=== PATIENT | male | born 1955 | race Asian ===

== ENCOUNTER 2020-05-08 13:29 | Outpatient (REF) | payer BC, SELFPAY ==
[2020-05-08 15:15] LABS: PSA,Total (Free>4and<10) 1.14 ng/mL (0.00-4.00)
== END 2020-05-08 13:30 | disposition home or self-care (01) ==
LOC: HO.LAB 13:29
PROVIDERS: PCP Internal Medicine; Visit Provider Urology
DX: R97.20 Elevated prostate specific antigen [PSA] (principal); Z12.5 Encounter for screening for malignant neoplasm of prostate
CPT/HCPCS: 36415; 84153

== ENCOUNTER → 2020-07-01 14:34 | Outpatient (BNVA) | payer BC, SELFPAY | PROVIDERS: Visit Provider Urology ==

== ENCOUNTER → 2021-01-01 14:06 | Outpatient (BNVA) | payer BC, SELFPAY | PROVIDERS: Visit Provider Urology ==

== ENCOUNTER → 2021-02-25 14:53 | Outpatient (BNVA) | payer BC, SELFPAY | PROVIDERS: Visit Provider Urology ==

== ENCOUNTER → 2021-03-11 13:51 | Outpatient (BNVA) | payer BC, SELFPAY | PROVIDERS: PCP Internal Medicine; Visit Provider Internal Medicine Cardiovascular Disease ==

== ENCOUNTER → 2021-03-12 09:33 | Outpatient (REF) | payer MEDICARE, SELFPAY ==
--- NOTE | ~2021-03-12 | NM_ITS ---
EXERCISE MYOCARDIAL PERFUSION STUDY INDICATION: Chest pain, assess for coronary disease and ischemia TECHNIQUE: The patient was brought in for an exercise perfusion study on 03/12/2021. Patient performed exercise as per Ra protocol and was injected 32 mCi of sestamibi once target heart rate was achieved. Images were obtained using the SPECT gamma camera interlaced with the gating device. Images were obtained in supine position. Resting perfusion study was performed on 03/13/2021. Patient was administered 32 mCi of sestamibi intravenously at rest. Images were then obtained in supine position. Total DLP 118mGy-cm. Images were processed with the software and compared side to side in short axis, horizontal long axis and vertical long axis views. FINDINGS: Raw images were reviewed. The stress perfusion study showed no significant perfusion abnormality. Both uncorrected as well as CT attenuation corrected images were reviewed. The gated study shows normal LV systolic function with calculated LVEF of >70%. LV cavity is normal in size. The gated study shows normal wall thickening and contraction of segments. Resting study shows no significant perfusion abnormality. Gating at rest reveals normal wall motion with ejection fraction at >70%. The findings are consistent with no reversible or fixed perfusion abnormality. NM/NM cardiolite stress test IMPRESSION: 1. Myocardial perfusion imaging study shows normal myocardial perfusion. 2. Gated LVEF is >70% during stress and rest. 3. Transient ischemic dilatation not present. EKG component of the test reported separately.
--- NOTE | 2021-03-12 09:49 | CA_ITS ---
Acquisition Time: 2021-03-12 10:47:21 Total Exercise Time: 00:05:00 Test Indications: R/O ANGINA, SOB Medications: SEE CHART Protocol: BARTOLO Max HR: 139 BPM 90% of Pred: 153 BPM Max BP: 166/080 mmHG Max Work Load: 6.7 METS Exercise stress test with exercise 5 min of Bartolo protocol, with moderate shortness of breath, no chest discomfort, without arrythmia during exercise, with sinus arrythmia noted at baseline and in recovery, with normotensive response to exercise, without EKG changes meeting criteria for ischemia. Nuclear images pending. Test reviewed with Dr Walker. Referred By: Miguel Angel Tobar Overread By: JIGAR DEL RIO
--- NOTE | 2021-03-12 09:49 | CA_ITS ---
Transthoracic Echocardiogram Patient (Last, First, Middle): Sushant Cerna, Gender: Male Date of : 1955 Age: 65 Procedure Date: 03/12/2021 Procedure Type: Transthoracic Echocardiogram Location: OP Height: 165.1 cm Weight: 90.27 kg BSA: 1.97 m2 Heart Rate: bpm BP: 126 / 74 mmHg Gas Meter Reader: ROSANNE Referring MD: Miguel Angel Tobar MD Symptoms: R06.02 - Shortness of breath Study Quality: Fair ECG Rhythm: Sinus Conclusions: - The left ventricular systolic function is normal. The calculated ejection fraction is 67% by biplane method. - There is mild calcification of the aortic valve. Findings Procedure Information Contrast agent, definity, is being given per protocol without apparent complications. Left Ventricle Normal left ventricular cavity size. There is normal left ventricular wall thickness. The left ventricular systolic function is normal. The calculated ejection fraction is 67% by biplane method. There is no evidence of regional wall motion abnormalities. Diastolic function is indeterminate on the basis of available data. Right Ventricle Normal right ventricular cavity size and systolic function. Atria Both atria are normal in size. Aortic Valve There is a normal trileaflet aortic valve. There is mild calcification of the aortic valve. There is no aortic valve stenosis. There is no aortic valve regurgitation. Mitral Valve The mitral valve appears normal. There is trace mitral valve regurgitation. There is no mitral valve stenosis. Pulmonic Valve The pulmonic valve was not well visualized. Tricuspid Valve There is trace tricuspid valve regurgitation. The pulmonary artery systolic pressure is normal. Great Vessels The aortic annulus and asc aorta are normal in size. Venous The inferior vena cava is normal in size and collapses less than 50% with inspiration. Pericardium/Pleural There is no evidence of pericardial effusion. Prior Study Comparison No prior study available for comparison. Measurements 2D Linear Measurements IVSd: 0.85 0.6-0.9/0.6-1.0 cm LVIDd: 4.90 3.9-5.3/4.2-5.9 cm LVIDd Index: 2.49 2.4-3.2/2.2-3.1 cm/m2 LVIDs: 3.03 2.0-3.6 cm LVPWd: 0.91 0.7-1.1 cm Ao Root: 3.40 2.1-3.5 cm LA Diam: 3.10 2.7-3.8/3.0-4.0 cm LAIDs Index: 1.57 1.5-2.3 cm/m2 LV Mass: 183.90 67-162/88-224 g LV Mass Index: 93.35 43-95/49-115 g/m2 LVOT Diam: 2.10 3.0+(-)1.3 cm 2D Systolic Function EF 4C: 69.10 >55% EF 2C: 62.00 >55% EF BiP: 66.60 >55% Mitral Valve MV Pk E: 0.75 MV PK A: 0.50 MV Decel Time: 198.00 E/A: 1.50 PHT: 58.00 MVA PHT: 3.79 Decel Monroe: 3.76 Aortic Valve AoV Pk Bahman: 1.60 AoV Pk Grad: 10.00 LVOT LVOT Pk Bahman: 0.97 LVOT Mn Bahman: 0.64 LVOT VTI: 0.23 LVOT Pk Grad: 4.00 LVOT Mn Grad: 2.00 LVOT Diam: 2.10 LVOT Area: 3.46 Diastolic Function MV Pk E: 0.75 MV Pk A: 0.50 E/A: 1.50 Right Ventricle TAPSE (mm): 2.87 Tricuspid Valve TR Pk Bahman: 2.17 TR Pk Grad: 19.00 RA Press: 8.00 RVSP: 27.00 Great Vessels Aorta Ao Root-2D: 3.40 2.0-3.7 cm Ao Asc: 3.40 2.1-3.4 cm Updated in Other Vendor System with Status of Final Harman Walker MD electronically signed on 03/13/2021 12:07:25 PM with status of Final
== END ==
LOC: HO.CARD 09:33
PROVIDERS: PCP Internal Medicine; Visit Provider Internal Medicine Cardiovascular Disease
DX: R07.9 Chest pain, unspecified (principal); R06.02 Shortness of breath
CPT/HCPCS: 78452; 93017; 93306; A9500; Q9957

== ENCOUNTER → 2021-04-29 11:01 | Outpatient (BNVA) | payer MEDICARE, SELFPAY | PROVIDERS: PCP Internal Medicine; Visit Provider Internal Medicine Cardiovascular Disease | DX: R06.02 Shortness of breath (principal); I10 Essential (primary) hypertension | CPT/HCPCS: 99212 ==

== ENCOUNTER 2021-05-14 15:37 | Outpatient (REF) | payer MEDICARE, SELFPAY ==
--- NOTE | 2021-05-14 17:29 | PFT_ITS ---
INDICATION: Shortness of breath. SPIROMETRY: FEV1 to FVC 90% with an FEV1 of 2.08 L, which is 76% predicted and an FVC of 2.31 L, which is 62% predicted. No significant response to bronchodilators noted. Maximum voluntary ventilation, 85% predicted. LUNG VOLUMES: Total lung capacity 63% predicted with an expiratory reserve volume of 7% predicted. DIFFUSION CAPACITY: DLCO 76% predicted. COMPARISONS: None. INTERPRETATION: No obstructive ventilatory defects. No significant response to bronchodilators noted. Normal maximum voluntary ventilation. The patient does have a restrictive ventilatory defect consistent with moderate restrictive lung disease. Need to consider underlying interstitial lung conditions. The patient also has a decrease in the expiratory reserve volume, so therefore likely the elevated BMI is playing a role in the decrease in total lung capacity. The patient does have a mild diffusion impairment. Clinical correlation warranted. MD AUGUSTUS Gaines/PATRICK / [phone]
== END 2021-05-14 15:38 | disposition home or self-care (01) ==
LOC: HO.RESP 15:37
PROVIDERS: PCP Internal Medicine; Visit Provider Internal Medicine Cardiovascular Disease
DX: R06.02 Shortness of breath (principal)
CPT/HCPCS: 94060; 94727; 94729

== ENCOUNTER → 2021-05-19 21:19 | Outpatient (REF) | payer MEDICARE, SELFPAY | LOC: HO.SL 21:19 | PROVIDERS: PCP Internal Medicine; Visit Provider Internal Medicine | DX: G47.33 Obstructive sleep apnea (adult) (pediatric) (principal) | CPT/HCPCS: 95811 ==

== ENCOUNTER → 2021-06-22 15:05 | Outpatient (BNVA) | payer MEDICARE, SELFPAY | PROVIDERS: PCP Internal Medicine; Visit Provider Internal Medicine | DX: G47.33 Obstructive sleep apnea (adult) (pediatric) (principal); J98.4 Other disorders of lung; E66.9 Obesity, unspecified; R06.02 Shortness of breath; Z68.36 Body mass index [BMI] 36.0-36.9, adult | CPT/HCPCS: 99202 ==

== ENCOUNTER → 2021-08-04 14:52 | Outpatient (BNVA) | payer MEDICARE, SELFPAY | PROVIDERS: PCP Internal Medicine; Visit Provider Internal Medicine | DX: J98.4 Other disorders of lung (principal); G47.33 Obstructive sleep apnea (adult) (pediatric); E66.9 Obesity, unspecified; Z68.35 Body mass index [BMI] 35.0-35.9, adult | CPT/HCPCS: 99212 ==

== ENCOUNTER → 2021-10-14 12:41 | Outpatient (BNVA) | payer MEDICARE, SELFPAY | PROVIDERS: Visit Provider Urology | DX: N40.1 Benign prostatic hyperplasia with lower urinary tract symptoms (principal); N13.8 Other obstructive and reflux uropathy; R39.12 Poor urinary stream | CPT/HCPCS: 99212 ==

== ENCOUNTER → 2021-11-25 14:35 | Outpatient (BNVA) | payer MEDICARE, SELFPAY | PROVIDERS: Visit Provider Internal Medicine | DX: G47.33 Obstructive sleep apnea (adult) (pediatric) (principal); J98.4 Other disorders of lung; E66.9 Obesity, unspecified; Z68.35 Body mass index [BMI] 35.0-35.9, adult; Z99.89 Dependence on other enabling machines and devices | CPT/HCPCS: 99212 ==

== ENCOUNTER → 2022-02-16 14:55 | Outpatient (BNVA) | payer MEDICARE, SELFPAY | PROVIDERS: PCP Internal Medicine; Visit Provider Internal Medicine | DX: G47.33 Obstructive sleep apnea (adult) (pediatric) (principal); E66.9 Obesity, unspecified; J98.4 Other disorders of lung; Z68.36 Body mass index [BMI] 36.0-36.9, adult | CPT/HCPCS: 99212 ==

== ENCOUNTER → 2022-03-11 08:24 | Outpatient (BNVA) | payer MEDICARE, SELFPAY | PROVIDERS: PCP Internal Medicine; Visit Provider Orthopaedic Surgery | DX: M65.342 Trigger finger, left ring finger (principal) | CPT/HCPCS: 99202; J1100 ==

== ENCOUNTER → 2022-06-21 14:51 | Outpatient (BNVA) | payer MEDICARE, SELFPAY | PROVIDERS: PCP Internal Medicine; Visit Provider Internal Medicine | DX: G47.33 Obstructive sleep apnea (adult) (pediatric) (principal); J98.4 Other disorders of lung; E66.9 Obesity, unspecified; Z68.35 Body mass index [BMI] 35.0-35.9, adult | CPT/HCPCS: 99212 ==

== ENCOUNTER 2022-12-27 14:46 | Outpatient (AMB) | payer MEDICARE, SELFPAY ==
[2022-12-27 15:04] VITALS: BP 104/54; PULSE 57; O2SAT 99; BMI 34.6
--- NOTE | 2022-12-27 15:04 | MHC.OFFVIS ---
Intake Vital Signs 12/27/22 15:04 Height 5 ft 5 in Weight 208 lb BMI 34.6 BP 104/54 L Blood Pressure Location Lt brachial Position Sitting Pulse 57 Pulse Source Pulse Oximeter Pulse Oximetry (%) 99 Oxygen Delivery Method Room Air Intake Visit Reasons: sleep apnea Intake Note: pt is here for follow up of TEJAS and states he is having some issues with cpap due to his nose gets very itchy, and not breathing good with it, he tried, but is struggling. 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 HE CLAIMS THAT HE SLEEPS WELL AND DOES NOT HAVE DAYTIME SLEEPINESS. HE CAN EVEN DRIVE HIS CAR FROM HERE TO [facility] WITHOUT FALLING ASLEEP.. HIS SAY IS THAT HE LOVES TO EAT SWEETS. HE HAS NOT LOST MUCH WEIGHT. [facility] Medical History Restrictive lung disease TEJAS (obstructive sleep apnea) Obesity (BMI 30-39.9) Hyperlipidemia HTN (hypertension) Obesity Hypothyroid High cholesterol Other obstructive and reflux uropathy Benign prostatic hyperplasia with lower urinary tract symptoms Elevated PSA Family History Father No problems noted. 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 Review of Systems Const All systems reviewed & are unremarkable except as noted in HPI and below Reports snoring Eyes Reports no additional complaints ENT Reports no additional complaints Card Denies chest pain, Denies irregular heart rhythm and Denies leg edema Resp Reports as per HPI, Denies cough, Reports snoring and Denies wheezing GI Reports no additional complaints Reports urinary hesitancy Musc Reports no additional complaints Skin/Breast Reports system reviewed and no additional complaints, except as documented Neuro Reports no additional complaints Psych Reports no additional complaints Endo Reports no additional complaints Andrey/Lymph Reports no additional complaints Aller/Immun Denies wheezing Physical Exam Vital Signs: Last Vital Signs Pulse 57 12/27/22 15:04 BP 104/54 L 12/27/22 15:04 Pulse Ox 99 12/27/22 15:04 Oxygen Delivery Method Room Air 12/27/22 15:04 BMI result Body Mass Index 34.6 Const General: healthy appearing (Except for being overweight), comfortable, no acute distress, alert and awake Orientation/consciousness: patient oriented x3 HEENT Head: Yes normal to inspection General nose exam: No nasal polyps present and No nasal discharge present Face and sinus: Yes sinuses nontender Mouth: oropharynx abnormals (Narrow and crowded, Mallampati class 4) Throat: Yes posterior oropharynx normal Eyes General: appearance normal, both eyes and all related structures Neck Other: Neck is short and obese, neck circumference 17-1/2 inch. Neck: Yes normal visual inspection, Yes no lymphadenopathy, Yes trachea midline and Yes no JVD Thyroid: Thyroid normal Chest Chest palpation & inspection: normal inspection of the chest, normal palpation of entire chest wall and no tenderness Resp Effort & Inspection: normal respiratory effort Auscultation: clear to auscultation bilaterally, no crackles and no wheezes Percussion: percussion normal Cardio Palpation: normal PMI Rate: regular rate Rhythm: regular rhythm Heart sounds: no gallops and no murmurs Peripheral pulses: Peripheral pulses 2+ throughout GI Palpation (GI): Soft to palpation, nontender, No hepatosplenomegaly present, no masses and Other GI palpation findings present (Abdomen is obese and slightly protuberant) Auscultation: normal bowel sounds Back/Spine/Pelvis Thoracic/Lumbar Spine: thoracic and lumbar spine normal to inspection Skin General skin exam: no rashes or lesions noted Neuro General: patient oriented x3 and no focal motor deficits Cranial nerves: Yes CN's II-XII intact bilaterally Extrem General: Yes normal to inspection, Yes no clubbing, cyanosis or edema and Yes no calf tenderness Psych Appearance: grossly normal and well kempt Speech and movement: Normal speech and movement present Results Reviewed Results Reviewed: COMPLIANCE REPORT FOR THE LAST 30 NIGHTS IS REVIEWED HE HAS NOT USE THE CPAP SINCE DECEMBER 01 Assessment & Plan Assessment & Plan (1) Obesity (BMI 30-39.9): Comment: Discussed with him about need to lose weight. I told him to cut down the intake of carbohydrates, Also instructed his about his diet . And start doing regular exercise daily,says he is walking on the treadmill up to 4 miles a day, Code(s): E66.9 - Obesity, unspecified (2) TEJAS (obstructive sleep apnea): Comment: He has moderately severe obstructive sleep apnea. He has not used CPAP in the last few months. Discussed with him about need of continuing to use the CPAP. Advise that he should start using it again. Will prescribed the nasal mask for him that may be more comfortable. Also prescribed up Atrovent nasal spray , use 1 spray in each nostril before putting on the CPAP mask. Advise that he should give a good try for using the CPAP. . Will check him in 2 months Code(s): G47.33 - Obstructive sleep apnea (adult) (pediatric) (3) Restrictive lung disease: Comment: Moderate degree of restrictive lung disease, related to his obesity. Again he was advised to lose weight and do deep breathing exercises. Code(s): J98.4 - Other disorders of lung Coding Level of Care Code Est Pt Level 3 (11264) Diagnoses Obesity (BMI 30-39.9) E66.9 TEJAS (obstructive sleep apnea) G47.33 Restrictive lung disease J98.4
== END 2022-12-27 15:39 | disposition home or self-care (01) ==
PROVIDERS: PCP Internal Medicine; Visit Provider Internal Medicine
DX: E66.9 Obesity, unspecified (principal); G47.33 Obstructive sleep apnea (adult) (pediatric); J98.4 Other disorders of lung
CPT/HCPCS: 99213

== ENCOUNTER → 2022-12-27 14:46 | Outpatient (BNVA) | payer MEDICARE, SELFPAY | PROVIDERS: Visit Provider Internal Medicine | DX: G47.33 Obstructive sleep apnea (adult) (pediatric) (principal); J98.4 Other disorders of lung; E66.9 Obesity, unspecified; Z68.34 Body mass index [BMI] 34.0-34.9, adult | CPT/HCPCS: 99212 ==

== ENCOUNTER 2022-12-31 13:45 | Outpatient (AMB) | payer MEDICARE, SELFPAY ==
--- NOTE | 2022-12-31 14:09 | MHC.OFFVIS ---
Intake Intake Visit Reasons: 1Y PSA(set) Intake Note: Patient presents today for a follow-up on 1 Year PSA: Meds- None Allergies to Antibiotic- No Known Allergies Blood Thinner- None PVR- 0 Allergies No Known Allergies Allergy (Verified 12/31/22 14:21) Medication List - Last Reconciled 12/31/22 by Tyson Jackson MD aspirin (Adult Aspirin Regimen) 81 mg PO DAILY atorvastatin 20 mg PO BEDTIME ipratropium bromide 2 sprays intranasal TID-QID PRN 30 days levothyroxine 50 mcg PO DAILY losartan 50 mg PO DAILY terazosin 10 mg PO BEDTIME 90 days HPI HPI Comments History of Present Illness Details Rell is a pleasant [place] male. He is seen for the following urologic conditions - lower urinary tract symptoms - associated elevated PSA Stable in 10 mg terazosin Current symptom nocturia x1, effective stream, effective emptying Minimum PVR Twelve month follow-up with PSA Accompanied by Lower urinary tract symptoms/elevated PSA Discussed current results - progressive hesitancy and nocturia with incomplete emptying despite tamsulosin Baseline symptoms mild nocturia with weakness of stream Current therapy trial terazosin 10 mg Prior therapy therapy tamsulosin Laboratories - PSA has been as high as 4.1 11/28 1.3, 06/01 1.15, 11/29 1.8, 10/30 1.9, 12/01 1.8 Therapeutic plan continue current medications PFSH Medical History Restrictive lung disease TEJAS (obstructive sleep apnea) Obesity (BMI 30-39.9) Hyperlipidemia HTN (hypertension) Obesity Hypothyroid High cholesterol Other obstructive and reflux uropathy Benign prostatic hyperplasia with lower urinary tract symptoms Elevated PSA Family History Father No problems noted. 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 Review of Systems Const Denies chills and Denies fever(s) Card Reports no additional complaints and Denies syncope Resp Denies cough GI Denies abdominal pain and Denies heartburn Reports as per HPI and Denies change in libido Neuro Denies syncope Psych Denies change in libido Endo Denies change in libido Physical Exam Const General: cooperative, healthy appearing, comfortable and no acute distress Orientation/consciousness: patient oriented x3 HEENT Face and sinus: Yes normal facial exam Mouth: moist mucous membranes Neck Neck: Yes normal visual inspection, Yes full ROM and Yes trachea midline Chest Chest palpation & inspection: normal inspection of the chest Resp Effort & Inspection: normal respiratory effort, able to speak in complete sentences and no respiratory distress GI Inspection: Yes normal to inspection Back/Spine/Pelvis Cervical Spine: normal cervical lordosis Thoracic/Lumbar Spine: thoracic and lumbar spine normal to inspection Skin General skin exam: no rashes or lesions noted Neuro General: patient oriented x3, gait normal, tone normal and moves all extremities Extrem General: Yes normal to inspection and Yes capillary refill normal Office Procedures Post Void Residual Post Residual Void Post Void Residual (PVR): 0 98752-[id number] Void Residual by ultrasound Results AMB Urinalysis, Automated UA Leukoctes 0 Miguel A/uL Last Edit by JUANJOSE Christian on 12/31/22 14:23 UA Nitrite Negative Last Edit by Kristin Fernando [facility] on 12/31/22 14:23 UA Urobilinogen 0.2 mg/dL Last Edit by Kristin Fernando Catalino on 12/31/22 14:23 UA Protein 0 mg/dL Last Edit by Kristin Fernando [facility] on 12/31/22 14:23 UA pH 6.0 Last Edit by Kristin Fernando Catalino on 12/31/22 14:23 UA Blood 0 Fei/uL Last Edit by Kristin Fernando Catalino on 12/31/22 14:23 UA Specific [place] 1.020 Last Edit by Kristin Fernando [facility] on 12/31/22 14:23 UA Ketone Negative Last Edit by JUANJOSE Christian on 12/31/22 14:23 UA Bilirubin 0 mg/dL Last Edit by Kristin Fernando [facility] on 12/31/22 14:23 UA Glucose 0 mg/dL Last Edit by Kristin Fernando [facility] on 12/31/22 14:23 Results Reviewed Results Reviewed: Laboratory Last Values Urine pH (Auto) 6.0 12/31/22 14:22 Specific [place] (Auto) 1.020 12/31/22 14:22 Urine Protein (Auto) 0 mg/dL 12/31/22 14:22 Glucose (UA)(Auto) 0 mg/dL 12/31/22 14:22 Urine Ketones (Auto) Negative 12/31/22 14:22 Urine Blood (Auto) 0 Fei/uL 12/31/22 14:22 Urine Nitrite (Auto) Negative 12/31/22 14:22 Urine Bilirubin (Auto) 0 mg/dL 12/31/22 14:22 Urine Urobilinogen (Auto) 0.2 mg/dL 12/31/22 14:22 Leukocyte Esterase (Auto) 0 Miguel A/uL 12/31/22 14:22 Assessment & Plan Assessment & Plan (1) BPH w urinary obs/LUTS: Code(s): N40.1 - Benign prostatic hyperplasia with lower urinary tract symptoms; N13.8 - Other obstructive and reflux uropathy (2) Elevated PSA: Code(s): R97.20 - Elevated prostate specific antigen [PSA] Plan 12 month follow-up Orders: Orders AMB Urinalysis Automated Today Z13.9 - Encounter for screening, unspecified Prostate Specific Antigen 364 Days N13.8 - Other obstructive and reflux uropathy, N40.1 - Benign prostatic hyperplasia with lower urinary tract symptoms AMB Post Void Residual by ultrasound Today N39.8 - Other specified disorders of urinary system Patient Instructions: Imaging studies, laboratory and physical exam results were discussed and reviewed in detail. No major barriers to patient understanding were identified. An opportunity to ask questions regarding the treatment plan was provided. All questions were answered. The patient expressed understanding and agreement with the above treatment plan. The patient is aware they should contact our office by phone for worsening of their current condition or the appearance of new urologic symptoms. Compliance is encouraged with any medications and followup testing that is ordered. It is a privilege to participate in the urologic care of your patient. If you have any questions or concerns regarding treatment for the above conditions, or other urologic issues, please do not hesitate to contact me. The office telephone contact is [phone]. This note is constructed using voice recognition software. While every effort has been made to ensure accuracy skiver uppers or linings errors may have been included. Yours sincerely, Dr Tyson Jackson MDBEBO [facility] - Urology Providers of Expert, Compassionate Care for the Genitourinary System Coding Level of Care Code Est Pt Level 4 (81685) Diagnoses BPH w urinary obs/LUTS N40.1; N13.8 Elevated PSA R97.20 CPT Codes Post Residual Void - PVR CPT Code: 72747-Lbqt Void Residual by ultrasound ([id number])
== END 2022-12-31 14:32 | disposition home or self-care (01) ==
PROVIDERS: PCP Internal Medicine; Visit Provider Urology
DX: N40.1 Benign prostatic hyperplasia with lower urinary tract symptoms (principal); N13.8 Other obstructive and reflux uropathy; R97.20 Elevated prostate specific antigen [PSA]; Z13.9 Encounter for screening, unspecified
CPT/HCPCS: 99214

== ENCOUNTER → 2022-12-31 13:45 | Outpatient (BNVA) | payer MEDICARE, SELFPAY | PROVIDERS: Visit Provider Urology | DX: R97.20 Elevated prostate specific antigen [PSA] (principal); N40.1 Benign prostatic hyperplasia with lower urinary tract symptoms; N13.8 Other obstructive and reflux uropathy | CPT/HCPCS: 51798; 81003; 99212 ==

== ENCOUNTER 2023-03-08 14:54 | Outpatient (AMB) | payer MEDICARE, SELFPAY ==
[2023-03-08 15:09] VITALS: BP 130/68; PULSE 59; O2SAT 99; BMI 36.3
--- NOTE | 2023-03-08 15:09 | A.OFFVIS_ITS ---
Intake Vital Signs 03/08/23 15:09 Height 5 ft 5 in Weight 218 lb BMI 36.3 BP 130/68 Blood Pressure Location Lt brachial Position Sitting Pulse 59 Pulse Source Pulse Oximeter Pulse Oximetry (%) 99 Oxygen Delivery Method Room Air Intake Visit Reasons: sleep apnea Intake Note: pt is here for follow up and states he is doing well, went on vacation, still waiting for new nasal pillows . [employer] Required: No Allergies No Known Allergies Allergy (Verified 03/08/23 15:34) Medication List - Last Reconciled 03/08/23 by Gab Cleemnts MD aspirin (Adult Aspirin Regimen) 81 mg PO DAILY atorvastatin 20 mg PO BEDTIME ipratropium bromide 2 sprays intranasal TID-QID PRN 30 days levothyroxine 50 mcg PO DAILY losartan 50 mg PO DAILY terazosin 10 mg PO BEDTIME 90 days Do you need a note to return to daycare/school/sports/work: No HPI sleep apnea HPI Details 67 years old gentleman is grossly obese and known case of Obstructive Sleep apnea. Since his last visit he is using CPAP more regularly. Using nasal pillows, which is more comfortable. Sometime it does slip off during the sleep. He has been sleeping much better. 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 He loves to eat bread and rice. Has put on some weight. [facility] Medical History Restrictive lung disease TEJAS (obstructive sleep apnea) Obesity (BMI 30-39.9) Hyperlipidemia HTN (hypertension) Obesity Hypothyroid High cholesterol Other obstructive and reflux uropathy Benign prostatic hyperplasia with lower urinary tract symptoms Elevated PSA Family History Father No problems noted. 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 Review of Systems Const All systems reviewed & are unremarkable except as noted in HPI and below Reports snoring Eyes Reports no additional complaints ENT Reports no additional complaints Card Denies chest pain, Denies irregular heart rhythm and Denies leg edema Resp Reports as per HPI, Denies cough, Reports snoring and Denies wheezing GI Reports no additional complaints Reports urinary hesitancy Musc Reports no additional complaints Skin/Breast Reports system reviewed and no additional complaints, except as documented Neuro Reports no additional complaints Psych Reports no additional complaints Endo Reports no additional complaints Andrey/Lymph Reports no additional complaints Aller/Immun Denies wheezing Physical Exam Vital Signs: Last Vital Signs Pulse 59 03/08/23 15:09 BP 130/68 03/08/23 15:09 Pulse Ox 99 03/08/23 15:09 Oxygen Delivery Method Room Air 03/08/23 15:09 BMI result Body Mass Index 36.3 Const General: healthy appearing (Except for being overweight), comfortable, no acute distress, alert and awake Orientation/consciousness: patient oriented x3 HEENT Head: Yes normal to inspection General nose exam: No nasal polyps present and No nasal discharge present Face and sinus: Yes sinuses nontender Mouth: oropharynx abnormals (Narrow and crowded, Mallampati class 4) Throat: Yes posterior oropharynx normal Eyes General: appearance normal, both eyes and all related structures Neck Other: Neck is short and obese, neck circumference 17-1/2 inch. Neck: Yes normal visual inspection, Yes no lymphadenopathy, Yes trachea midline and Yes no JVD Thyroid: Thyroid normal Chest Chest palpation & inspection: normal inspection of the chest, normal palpation of entire chest wall and no tenderness Resp Effort & Inspection: normal respiratory effort Auscultation: clear to auscultation bilaterally, no crackles and no wheezes Percussion: percussion normal Cardio Palpation: normal PMI Rate: regular rate Rhythm: regular rhythm Heart sounds: no gallops and no murmurs Peripheral pulses: Peripheral pulses 2+ throughout GI Palpation (GI): Soft to palpation, nontender, No hepatosplenomegaly present, no masses and Other GI palpation findings present (Abdomen is obese and slightly protuberant) Auscultation: normal bowel sounds Back/Spine/Pelvis Thoracic/Lumbar Spine: thoracic and lumbar spine normal to inspection Skin General skin exam: no rashes or lesions noted Neuro General: patient oriented x3 and no focal motor deficits Cranial nerves: Yes CN's II-XII intact bilaterally Extrem General: Yes normal to inspection, Yes no clubbing, cyanosis or edema and Yes no calf tenderness Psych Appearance: grossly normal and well kempt Speech and movement: Normal speech and movement present Results Reviewed Results Reviewed: Compliance report for the last 30 nights is reviewed. He has used 29/30 nights, 97%. Average use per night 5 hours 4 minutes. Pressure used mostly 13-14 cm. The report does not show much air leak. Residual AHI 1.9 which is okay Assessment & Plan Assessment & Plan (1) Obesity (BMI 30-39.9): Comment: Discussed with him about need to lose weight. I told him to cut down the intake of carbohydrates, And start doing regular exercise daily . Says he is walking on the treadmill up to 4 miles a day, Code(s): E66.9 - Obesity, unspecified (2) TEJAS (obstructive sleep apnea): Comment: He has moderately severe obstructive sleep apnea. Since his last visit 6 months ago he has been using CPAP more regularly. He likes nasal pillows. His compliance report is much better. Than before He is encouraged to use it every night for at least 5-6 hours per night. Code(s): G47.33 - Obstructive sleep apnea (adult) (pediatric) (3) Restrictive lung disease: Comment: Moderate degree of restrictive lung disease, related to his obesity. Again he was advised to lose weight and do deep breathing exercises. Code(s): J98.4 - Other disorders of lung Coding Level of Care Code Est Pt Level 3 (51825) Diagnoses Obesity (BMI 30-39.9) E66.9 TEJAS (obstructive sleep apnea) G47.33 Restrictive lung disease J98.4
== END 2023-03-08 15:38 | disposition home or self-care (01) ==
PROVIDERS: PCP Internal Medicine; Visit Provider Internal Medicine
DX: E66.9 Obesity, unspecified (principal); G47.33 Obstructive sleep apnea (adult) (pediatric); J98.4 Other disorders of lung
CPT/HCPCS: 99213

== ENCOUNTER → 2023-03-08 14:54 | Outpatient (BNVA) | payer MEDICARE, SELFPAY | PROVIDERS: PCP Internal Medicine; Visit Provider Internal Medicine | DX: G47.33 Obstructive sleep apnea (adult) (pediatric) (principal); J98.4 Other disorders of lung; E66.9 Obesity, unspecified; Z68.36 Body mass index [BMI] 36.0-36.9, adult | CPT/HCPCS: 99212 ==

== ENCOUNTER 2023-04-18 06:11 | Day surgery (SDC) | payer MEDICARE, SELFPAY ==
[2023-04-14 09:21] VITALS: BMI 36.4
--- NOTE | 2023-04-15 07:56 | MHC.SHP ---
Pre-Procedural Eval Section A Date of Service: 04/15/23 The patient is an INPATIENT: No Changes since office visit: No Cold of Flu in the past 2 weeks, No New Medical Problems, No Changes in Medication and No Patient answered all questions The History & Physical has been completed within 30 days and I have reviewed it.: Yes Section B Chief Complaint: Age-related nuclear cataract, right eye Allergies: Allergies Allergy/AdvReac Type Severity Reaction Status Date / Time No Known Allergies Allergy Verified 03/08/23 15:34 Plan Diagnosis/Plan: Unchanged I have reviewed the history and physical and performed a pertinent physical examination on my patient. No changes have occurred unless specified. Time Spent With Patient Time: Total time managing care of this patient today ____ minutes.
--- NOTE | 2023-04-15 09:15 | HO.ANESPROP2 ---
Documented by User: Lesly Bonds NP 04/15/23 09:16 HPI - Anesthesia Eval Consult details Narrative: 67yo M for Right Cataract Multifocal with IOL Insertion Medically cleared No prev cataract on record PMFSH Active Problems Active Problems: All Active Problems (Updated 03/08/23 @ 15:40 by Gab Clements MD) Trigger finger, left ring finger (Acute) SOB (shortness of breath) on exertion (Acute) Weak urinary stream (Acute) BPH w urinary obs/LUTS (Acute) Elevated PSA (Acute) Restrictive lung disease (Acute) TEJAS (obstructive sleep apnea) (Acute) Obesity (BMI 30-39.9) (Acute) Hyperlipidemia (Acute) HTN (hypertension) (Acute) Past Medical History Medical History Restrictive lung disease TEJAS (obstructive sleep apnea) Obesity (BMI 30-39.9) Hyperlipidemia HTN (hypertension) Obesity Hypothyroid High cholesterol Other obstructive and reflux uropathy Benign prostatic hyperplasia with lower urinary tract symptoms Elevated PSA Family History Family History Father No problems noted. Mother Enlarged heart Diabetes Surgical History Surgical History H/O colonoscopy Social History Social History Are you a primary senior care manager to a significant other at home: No Do you presently have visiting nurse or other home services: No Patient Tobacco Use Status: Former Tobacco user Tobacco use type: Smokeless Tobacco Use of substances other than those prescribed or required for medical reasons: No Have you been hit, kicked, punched, or otherwise hurt by someone within the past year? 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 Meds Allergies Allergy/AdvReac Type Severity Reaction Status Date / Time No Known Allergies Allergy Verified 03/08/23 15:34 Home Medications Medication Instructions Recorded Confirmed Last Taken Type levothyroxine 50 mcg tablet 50 mcg PO DAILY 07/01/20 04/14/23 Unknown History losartan 50 mg tablet 50 mg PO DAILY 07/01/20 04/14/23 Unknown History Exam Height,Weight and Vital Signs: Height 5 ft 4 in Weight 96.162 kg Assessment and Plan Assessment Anesthesia Assessment: Chart Reviewed Documented by User: Augustine Cooper MD 04/18/23 07:13 PMF Past Medical History Medical History Restrictive lung disease TEJAS (obstructive sleep apnea) Obesity (BMI 30-39.9) Hyperlipidemia HTN (hypertension) Obesity Hypothyroid High cholesterol Other obstructive and reflux uropathy Benign prostatic hyperplasia with lower urinary tract symptoms Elevated PSA Family History Family History Father No problems noted. Mother Enlarged heart Diabetes Family history of problems with anesthesia: No Surgical History Surgical History H/O colonoscopy History of Problems with Anesthesia: No Social History Social History Are you a primary senior care manager to a significant other at home: No Do you presently have visiting nurse or other home services: No Patient Tobacco Use Status: Former Tobacco user Tobacco use type: Smokeless Tobacco Use of substances other than those prescribed or required for medical reasons: No Have you been hit, kicked, punched, or otherwise hurt by someone within the past year? 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 Meds Allergies Allergy/AdvReac Type Severity Reaction Status Date / Time No Known Allergies Allergy Verified 03/08/23 15:34 Home Medications Medication Instructions Recorded Confirmed Last Taken Type levothyroxine 50 mcg tablet 50 mcg PO DAILY 07/01/20 04/14/23 Unknown History losartan 50 mg tablet 50 mg PO DAILY 07/01/20 04/14/23 Unknown History Exam Airway Mallampati Class: III TM Dist: >3cm Neck ROM: Full Loose/Missing/Broken Teeth: No Heart: rrr+s1s2 Lungs: cta b/l Assessment and Plan Assessment Anesthesia Assessment: Anesthesia Plan Discussed Final Anesthetic Review Family History of Problems with Anesthesia: No History of Problems with Anesthesia: No NPO: Yes ASA Class: III Final Preanesthetic Review: No Changes in Pt Med Stat, Meds/Allgs Chart Reviewed, Consent Obtained/Reviewed and Anes Risks/Benef Reviewed Patient Risk: Intermediate Procedure Risk: Low Assessment/Block/Sedation in SS: Assess/Block/Sedation-SS Anesthetic Plan Anesthetic Plan: MAC: and Agree w/ Assess. and Plan Disposition: Standard PACU
[2023-04-18 06:58] VITALS: BP 140/82; PULSE 77; RESP 16; TEMP 36.2; O2SAT 98
[2023-04-18 07:05] VITALS: BMI 36.8
--- NOTE | 2023-04-18 08:35 | HO.PNOPHT ---
Ophthalmology Procedure Procedure Date of Service: 04/18/23 Ophthalmology Viscoelastic: Healon Duet Dual Pack Pro Ophthalmology Lenses: TECNIS ZXR00 (21.5) Procedure Notes: PREOPERATIVE DIAGNOSIS: Decreased visual acuity right eye secondary to cataract POSTOPERATIVE DIAGNOSIS: Same PROCEDURE: Right cataract extraction with multifocal intraocular lens insertion SURGEON: Venu Kahn M.D. ANESTHESIA: Topical/MAC ESTIMATED BLOOD LOSS: None COMPLICATIONS: None After obtaining informed consent, the patient was brought to the operating room suite and placed in the supine position. After adequate sedation per anesthesia, topical drops of Tetracaine were given to the right eye. The eye was then prepped and draped in the usual sterile fashion. The operating room microscope was then positioned over the operative eye and a lid speculum placed. A paracentesis was created. Viscoelastic was then instilled into the anterior chamber. A three plane incision was then created temporally, utilizing a 2.85 mm keratome. Capsulotomy forceps were then utilized to create a circular tear capsulotomy. Hydrodissection and hydrodelineation were carried out until adequate mobilization of the nucleus occurred. Phacoemulsification was then utilized to remove the dense central nucleus followed by removal of the cortical material utilizing the automated aspiration irrigation unit. Viscoelastic was instilled into the posterior capsular bag followed by placement of a multifocal posterior chamber intraocular lens without difficulty. The residual Viscoelastic was then removed utilizing the automated IA machine. The wound was checked and found to be watertight. The patient tolerated the procedure well and the lid speculum was removed. Intracameral injection of Vigamox 0.1 mL followed by a subtenon injection of Kenalog-40 0.2 mL were administered. The patient will be seen in the a.m.
[2023-04-18 09:05] VITALS: BP 124/70; PULSE 62; RESP 16; TEMP 36.1; O2SAT 97
== END 2023-04-18 09:14 | disposition home or self-care (01) ==
PROVIDERS: PCP Internal Medicine; Visit Provider Ophthalmology
PROC: (CPT 66984; principal; 2023-04-18 08:20)
DX: H25.11 Age-related nuclear cataract, right eye (principal); H52.4 Presbyopia; H35.09 Other intraretinal microvascular abnormalities; H11.153 Pinguecula, bilateral; H18.413 Arcus senilis, bilateral; I10 Essential (primary) hypertension; E03.9 Hypothyroidism, unspecified; E78.00 Pure hypercholesterolemia, unspecified; G47.33 Obstructive sleep apnea (adult) (pediatric); E66.01 Morbid (severe) obesity due to excess calories; Z68.35 Body mass index [BMI] 35.0-35.9, adult; Z79.899 Other long term (current) drug therapy; Z99.89 Dependence on other enabling machines and devices; Z87.891 Personal history of nicotine dependence
CPT/HCPCS: 66984; J2250; J3010; J3301; V2788

== ENCOUNTER 2023-05-02 07:09 | Day surgery (SDC) | payer MEDICARE, SELFPAY ==
[2023-04-14 09:35] VITALS: BMI 36.4
--- NOTE | 2023-04-28 11:52 | HO.ANESPROP2 ---
Documented by User: Lesly Bonds NP 04/28/23 11:52 HPI - Anesthesia Eval Consult details Narrative: 67yo M for Left Cataract Extraction IOL Insertion Medically cleared Right eye 04/18/23: Fent 25, Midaz 1 PMFSH Active Problems Active Problems: All Active Problems (Updated 03/08/23 @ 15:40 by Gab Clements MD) Trigger finger, left ring finger (Acute) SOB (shortness of breath) on exertion (Acute) Weak urinary stream (Acute) BPH w urinary obs/LUTS (Acute) Elevated PSA (Acute) Restrictive lung disease (Acute) TEJAS (obstructive sleep apnea) (Acute) Obesity (BMI 30-39.9) (Acute) Hyperlipidemia (Acute) HTN (hypertension) (Acute) Past Medical History Medical History Restrictive lung disease TEJAS (obstructive sleep apnea) Obesity (BMI 30-39.9) Hyperlipidemia HTN (hypertension) Obesity Hypothyroid High cholesterol Other obstructive and reflux uropathy Benign prostatic hyperplasia with lower urinary tract symptoms Elevated PSA Family History Family History Father No problems noted. Mother Enlarged heart Diabetes Family history of problems with anesthesia: No Surgical History Surgical History H/O colonoscopy History of Problems with Anesthesia: No Social History Social History Are you a primary special needs caregiver to a significant other at home: No Do you presently have visiting nurse or other home services: No Patient Tobacco Use Status: Former Tobacco user Tobacco use type: Smokeless Tobacco Use of substances other than those prescribed or required for medical reasons: No Have you been hit, kicked, punched, or otherwise hurt by someone within the past year? 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 Meds Allergies Allergy/AdvReac Type Severity Reaction Status Date / Time No Known Allergies Allergy Verified 03/08/23 15:34 Home Medications Medication Instructions Recorded Confirmed Last Taken Type levothyroxine 50 mcg tablet 50 mcg PO DAILY 07/01/20 04/14/23 Unknown History losartan 50 mg tablet 50 mg PO DAILY 07/01/20 04/14/23 Unknown History Exam Height,Weight and Vital Signs: Height 5 ft 4 in Weight 96.162 kg Assessment and Plan Assessment Anesthesia Assessment: Chart Reviewed Final Anesthetic Review Family History of Problems with Anesthesia: No History of Problems with Anesthesia: No Documented by User: Augustine Cooper MD 05/02/23 07:03 [facility] Past Medical History Medical History Restrictive lung disease TEJAS (obstructive sleep apnea) Obesity (BMI 30-39.9) Hyperlipidemia HTN (hypertension) Obesity Hypothyroid High cholesterol Other obstructive and reflux uropathy Benign prostatic hyperplasia with lower urinary tract symptoms Elevated PSA Family History Family History Father No problems noted. Mother Enlarged heart Diabetes Surgical History Surgical History H/O colonoscopy History of Problems with Anesthesia: No Social History Social History Are you a primary special needs caregiver to a significant other at home: No Do you presently have visiting nurse or other home services: No Patient Tobacco Use Status: Former Tobacco user Tobacco use type: Smokeless Tobacco Use of substances other than those prescribed or required for medical reasons: No Have you been hit, kicked, punched, or otherwise hurt by someone within the past year? 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 Meds Allergies Allergy/AdvReac Type Severity Reaction Status Date / Time No Known Allergies Allergy Verified 03/08/23 15:34 Home Medications Medication Instructions Recorded Confirmed Last Taken Type levothyroxine 50 mcg tablet 50 mcg PO DAILY 07/01/20 04/14/23 Unknown History losartan 50 mg tablet 50 mg PO DAILY 07/01/20 04/14/23 Unknown History Exam Airway Mallampati Class: III TM Dist: >3cm Neck ROM: Full Loose/Missing/Broken Teeth: No Heart: rrr+s1s2 Lungs: cta b/l Assessment and Plan Assessment Anesthesia Assessment: Anesthesia Plan Discussed Final Anesthetic Review History of Problems with Anesthesia: No NPO: Yes ASA Class: III Final Preanesthetic Review: No Changes in Pt Med Stat, Meds/Allgs Chart Reviewed, Consent Obtained/Reviewed and Anes Risks/Benef Reviewed Patient Risk: Intermediate Procedure Risk: Low Assessment/Block/Sedation in SS: Assess/Block/Sedation-SS Anesthetic Plan Anesthetic Plan: MAC: Disposition: Standard PACU
[2023-05-02 07:19] VITALS: BMI 37.3
[2023-05-02 07:21] VITALS: BP 129/72; PULSE 66; RESP 16; TEMP 36.4; O2SAT 98
[2023-05-02] MEDS: Tetracaine HCl/PF 0.5% Oph Sol 4 ML DROPS 1 DROP EYE-LEFT (07:27)
[2023-05-02] MEDS: Cyclopentolate 1 % Ophth Sol 2 ML DRPBTL 1 DROP EYE-LEFT ×3 (07:29→07:49)
[2023-05-02] MEDS: Tropicamide 1 % Ophth Sol 3 ML BTL 1 DROP EYE-LEFT ×3 (07:37→07:50)
[2023-05-02] MEDS: Ketorolac Tromethamine 0.5% Op 5 ML DROPS 1 DROP EYE-LEFT ×3 (07:38→07:51)
[2023-05-02] MEDS: Lactated Ringers 500 ML 50 ML IV (07:41)
[2023-05-02] MEDS: Phenylephrine HCL 2.5% Oph SoL 2 ML BOTTLE 1 DROP EYE-LEFT ×3 (07:41→07:52)
--- NOTE | 2023-05-02 08:55 | MHC.SHP ---
Pre-Procedural Eval Section A Date of Service: 05/02/23 The patient is an INPATIENT: No Changes since office visit: No Cold of Flu in the past 2 weeks, No New Medical Problems, No Changes in Medication and No Patient answered all questions The History & Physical has been completed within 30 days and I have reviewed it.: Yes Section B Chief Complaint: Age-related nuclear cataract, left eye Allergies: Allergies Allergy/AdvReac Type Severity Reaction Status Date / Time No Known Allergies Allergy Verified 05/02/23 07:19 Plan Diagnosis/Plan: Unchanged I have reviewed the history and physical and performed a pertinent physical examination on my patient. No changes have occurred unless specified. Time Spent With Patient Time: Total time managing care of this patient today ____ minutes.
--- NOTE | 2023-05-02 08:57 | HO.PNOPHT ---
Ophthalmology Procedure Procedure Date of Service: 05/02/23 Ophthalmology Viscoelastic: Healon Duet Dual Pack Pro Ophthalmology Lenses: TECNIS ZXR00 (22.5) Procedure Notes: PREOPERATIVE DIAGNOSIS: Decreased visual acuity left eye secondary to cataract POSTOPERATIVE DIAGNOSIS: Same PROCEDURE: Left cataract extraction with intraocular lens insertion SURGEON: Venu Kahn M.D. ANESTHESIA: Topical/MAC ESTIMATED BLOOD LOSS: None COMPLICATIONS: None After obtaining informed consent, the patient was brought to the operation room suite and placed in the supine position. After adequate sedation per anesthesia, topical drops of Tetracaine were given to the left eye. The eye was then prepped and draped in the usual sterile fashion. The operating room microscope was then positioned over the operative eye and a lid speculum placed. A paracentesis was created. Viscoelastic was then instilled into the anterior chamber. A three plane incision was then created temporally, utilizing a 2.85 mm keratome. Capsulotomy forceps were then utilized to create a circular tear capsulotomy. Hydrodissection and hydrodelineation were carried out until adequate mobilization of the nucleus occurred. Phacoemulsification was then utilized to remove the dense central nucleus followed by removal of the cortical material utilizing the automated aspiration irrigation unit. Viscoat elastic was instilled into the posterior capsular bag followed by placement of a posterior chamber intraocular lens without difficulty. The residual Viscoat elastic was then removed utilizing the automated IA machine. The wound was check and found to be watertight. The patient tolerated the procedure well and the lid speculum was removed. Intracameral injection of Vigamox 0.1 mL followed by a subtenon injection of Kenalog-40 0.2 mL were administered. The patient will be seen in the a.m.
[2023-05-02 09:24] VITALS: BP 144/85; PULSE 63; RESP 18; TEMP 36.5; O2SAT 99
[2023-05-02 09:29] VITALS: BP 136/77; PULSE 62; RESP 20; TEMP 36.3; O2SAT 99
== END 2023-05-02 09:40 | disposition home or self-care (01) ==
PROVIDERS: PCP Internal Medicine; Visit Provider Ophthalmology
PROC: (CPT 66984; principal; 2023-05-02 08:20)
DX: H25.12 Age-related nuclear cataract, left eye (principal); H52.4 Presbyopia; H11 Other disorders of conjunctiva; H35.09 Other intraretinal microvascular abnormalities; I10 Essential (primary) hypertension; E03.9 Hypothyroidism, unspecified; E78.00 Pure hypercholesterolemia, unspecified; G47.33 Obstructive sleep apnea (adult) (pediatric); Z99.89 Dependence on other enabling machines and devices; Z79.82 Long term (current) use of aspirin; Z79.899 Other long term (current) drug therapy; Z87.891 Personal history of nicotine dependence
CPT/HCPCS: 66984; J2250; J3010; J3301; V2788

== ENCOUNTER 2023-09-06 15:24 | Outpatient (AMB) | payer MEDICARE, SELFPAY ==
[2023-09-06 15:37] VITALS: BP 102/64; PULSE 61; O2SAT 98; BMI 36.3
--- NOTE | 2023-09-06 15:37 | A.OFFVIS_ITS ---
Vital Signs 09/06/23 15:37 Height 5 ft 4 in Weight 211 lb 10.3 oz BMI 36.3 BP 102/64 Blood Pressure Location Lt brachial Position Sitting Pulse 61 Pulse Source Pulse Oximeter Pulse Oximetry (%) 98 Oxygen Delivery Method Room Air Intake Visit Reasons: sleep apnea Intake Note: pt is here for follow up and states he is doing well, but was out of the country for a while. 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 Cerna , 69 years old gentleman, is a case of obstructive sleep apnea, He is here for 6 months follow-up Since March 2023 he has been traveling [place] , for most of the time and has not used his CPAP. Now he is back in the town and is planning to start using, the machine He does complain of feeling groggy and sleepy in the morning hours , when he does not. Use the CPAP machine He has not able to lose much weight as he is not able to walk much due to his. Low back pain He claims him that he eats only twice a day lunch and dinner, and is trying to restrict the intake of carbohydrates. He has lost about 7-8 lb since April. [facility] Medical History Restrictive lung disease TEJAS (obstructive sleep apnea) Obesity (BMI 30-39.9) Hyperlipidemia HTN (hypertension) Obesity Hypothyroid High cholesterol Other obstructive and reflux uropathy Benign prostatic hyperplasia with lower urinary tract symptoms Elevated PSA Surgical History H/O colonoscopy Family History Father No problems noted. 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 Review of Systems Const All systems reviewed & are unremarkable except as noted in HPI and below Reports snoring Eyes Reports no additional complaints ENT Reports no additional complaints Card Denies chest pain, Denies irregular heart rhythm and Denies leg edema Resp Reports as per HPI, Denies cough, Reports snoring and Denies wheezing GI Reports no additional complaints Reports urinary hesitancy Musc Reports no additional complaints Skin/Breast Reports system reviewed and no additional complaints, except as documented Neuro Reports no additional complaints Psych Reports no additional complaints Endo Reports no additional complaints Andrey/Lymph Reports no additional complaints Aller/Immun Denies wheezing Physical Exam Vital Signs: Last Vital Signs Pulse 61 09/06/23 15:37 BP 102/64 09/06/23 15:37 Pulse Ox 98 09/06/23 15:37 Oxygen Delivery Method Room Air 09/06/23 15:37 BMI result Body Mass Index 36.3 Const General: healthy appearing (Except for being overweight), comfortable, no acute distress, alert and awake Orientation/consciousness: patient oriented x3 HEENT Head: Yes normal to inspection General nose exam: No nasal polyps present and No nasal discharge present Face and sinus: Yes sinuses nontender Mouth: oropharynx abnormals (Narrow and crowded, Mallampati class 4) Throat: Yes posterior oropharynx normal Eyes General: appearance normal, both eyes and all related structures Neck Other: Neck is short and obese, neck circumference 17-1/2 inch. Neck: Yes normal visual inspection, Yes no lymphadenopathy, Yes trachea midline and Yes no JVD Thyroid: Thyroid normal Chest Chest palpation & inspection: normal inspection of the chest, normal palpation of entire chest wall and no tenderness Resp Effort & Inspection: normal respiratory effort Auscultation: clear to auscultation bilaterally, no crackles and no wheezes Percussion: percussion normal Cardio Palpation: normal PMI Rate: regular rate Rhythm: regular rhythm Heart sounds: no gallops and no murmurs Peripheral pulses: Peripheral pulses 2+ throughout GI Palpation (GI): Soft to palpation, nontender, No hepatosplenomegaly present, no masses and Other GI palpation findings present (Abdomen is obese and slightly protuberant) Auscultation: normal bowel sounds Back/Spine/Pelvis Thoracic/Lumbar Spine: thoracic and lumbar spine normal to inspection Skin General skin exam: no rashes or lesions noted Neuro General: patient oriented x3 and no focal motor deficits Cranial nerves: Yes CN's II-XII intact bilaterally Extrem General: Yes normal to inspection, Yes no clubbing, cyanosis or edema and Yes no calf tenderness Psych Appearance: grossly normal and well kempt Speech and movement: Normal speech and movement present Results Reviewed Results Reviewed: Compliance report for the last 12 months is reviewed. He used the CPAP fairly regularly up until end of March of 2023 and afterwards he has not used it. Assessment & Plan Assessment & Plan (1) Obesity (BMI 30-39.9): Comment: Remains grossly overweight. Discussed with him about need to lose weight. I told him to cut down the intake of carbohydrates, And start doing regular exercise daily . Code(s): E66.9 - Obesity, unspecified Category: Medical Plan: Walk a few miles every day, even though slowly. Cut down the intake of carbohydrates. (2) TEJAS (obstructive sleep apnea): Comment: He has moderately severe obstructive sleep apnea. Since his last visit 6 months ago he was using CPAP more regularly. He likes nasal pillows. But again since March he has not used much, due to his travels overseas. Code(s): G47.33 - Obstructive sleep apnea (adult) (pediatric) Category: Medical Plan: Talked about using the CPAP regularly. Advise that he should start using for tonight. Have the machine checked if it. Does not work properly (3) Restrictive lung disease: Comment: Moderate degree of restrictive lung disease, related to his obesity. Again he was advised to lose weight and do deep breathing exercises. Code(s): J98.4 - Other disorders of lung Category: Medical Plan: Encouraged to lose weight and do deep breathing exercises. Coding Level of Care Code Est Pt Level 3 (00063) Diagnoses Obesity (BMI 30-39.9) E66.9 TEJAS (obstructive sleep apnea) G47.33 Restrictive lung disease J98.4
== END 2023-09-06 16:04 | disposition home or self-care (01) ==
PROVIDERS: PCP Internal Medicine; Visit Provider Internal Medicine
DX: E66.9 Obesity, unspecified (principal); G47.33 Obstructive sleep apnea (adult) (pediatric); J98.4 Other disorders of lung
CPT/HCPCS: 99213

== ENCOUNTER → 2023-09-06 15:24 | Outpatient (BNVA) | payer MEDICARE, SELFPAY | PROVIDERS: PCP Internal Medicine; Visit Provider Internal Medicine | DX: G47.33 Obstructive sleep apnea (adult) (pediatric) (principal); J98.4 Other disorders of lung; E66.9 Obesity, unspecified; Z68.36 Body mass index [BMI] 36.0-36.9, adult | CPT/HCPCS: 99212 ==

== ENCOUNTER 2024-01-04 13:19 | Outpatient (AMB) | payer MEDICARE, SELFPAY ==
--- NOTE | 2024-01-04 13:24 | MHC.OFFVIS ---
Intake Visit Reasons: 1Y Follow Up-PSA/PVR(set) Intake Note: Patient is Present for PVR/PSA Urology Med:Terazosin Antibiotic Allergy: None Blood Thinner:Aspirin Last PVR: 0 Todays PVR:80 Recent PSA: 12/24/23- 1.2 Director Treasurer Required: No International Logistics Coordinator: International Logistics Coordinator Present Accompanied by: Spouse Allergies No Known Allergies Allergy (Verified 01/04/24 13:35) HPI Comments Details: Rell is a pleasant male. He is seen for the following urologic conditions - lower urinary tract symptoms - associated elevated PSA Yearly review Stable in 10 mg terazosin Current symptom nocturia x1, effective stream, effective emptying PVR 80 cc Encouraged to work on weight loss. South gentleman target BMI under 27. Lower urinary tract symptoms/elevated PSA Discussed current results - progressive hesitancy and nocturia with incomplete emptying despite tamsulosin Baseline symptoms mild nocturia with weakness of stream Current therapy trial terazosin 10 mg Prior therapy therapy tamsulosin Laboratories - PSA has been as high as 4.1 11/28 1.3, 06/01 1.15, 11/29 1.8, 10/30 1.9, 12/01 1.8, 01/02 1.1 Therapeutic plan continue current medications PFSH Medical History Restrictive lung disease TEJAS (obstructive sleep apnea) Obesity (BMI 30-39.9) Hyperlipidemia HTN (hypertension) Obesity Hypothyroid High cholesterol Other obstructive and reflux uropathy Benign prostatic hyperplasia with lower urinary tract symptoms Elevated PSA Surgical History H/O colonoscopy Family History Father No problems noted. 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 Review of Systems Const Denies chills and Denies fever(s) Card Reports no additional complaints and Denies syncope Resp Denies cough GI Denies abdominal pain and Denies heartburn Reports as per HPI and Denies change in libido Neuro Denies syncope Psych Denies change in libido Endo Denies change in libido Physical Exam Const General: cooperative, healthy appearing, comfortable and no acute distress Orientation/consciousness: patient oriented x3 HEENT Face and sinus: Yes normal facial exam Mouth: moist mucous membranes Neck Neck: Yes normal visual inspection, Yes full ROM and Yes trachea midline Chest Chest palpation & inspection: normal inspection of the chest Resp Effort & Inspection: normal respiratory effort, able to speak in complete sentences and no respiratory distress GI Inspection: Yes normal to inspection Back/Spine/Pelvis Cervical Spine: normal cervical lordosis Thoracic/Lumbar Spine: thoracic and lumbar spine normal to inspection Skin General skin exam: no rashes or lesions noted Neuro General: patient oriented x3, gait normal, tone normal and moves all extremities Extrem General: Yes normal to inspection and Yes capillary refill normal Office Procedures Post Void Residual Post Residual Void Post Void Residual (PVR): 80 [id number]-Izdz Void Residual by ultrasound Assessment & Plan Assessment & Plan (1) BPH w urinary obs/LUTS: Code(s): N40.1 - Benign prostatic hyperplasia with lower urinary tract symptoms; N13.8 - Other obstructive and reflux uropathy Category: Medical (2) Weak urinary stream: Code(s): R39.12 - Poor urinary stream Category: Medical Plan Twelve month follow-up PVR Orders: Orders AMB Post Void Residual by ultrasound Today N13.8 - Other obstructive and reflux uropathy, N40.1 - Benign prostatic hyperplasia with lower urinary tract symptoms Patient Instructions: Imaging studies, laboratory and physical exam results were discussed and reviewed in detail. No major barriers to patient understanding were identified. An opportunity to ask questions regarding the treatment plan was provided. All questions were answered. The patient expressed understanding and agreement with the above treatment plan. The patient is aware they should contact our office by phone for worsening of their current condition or the appearance of new urologic symptoms. Compliance is encouraged with any medications and followup testing that is ordered. It is a privilege to participate in the urologic care of your patient. If you have any questions or concerns regarding treatment for the above conditions, or other urologic issues, please do not hesitate to contact me. The office telephone contact is [phone]. This note is constructed using voice recognition software. While every effort has been made to ensure accuracy animal laboratory helper errors may have been included. Yours sincerely, Dr Tyson Jackson MD, [facility] - Urology Providers of Expert, Compassionate Care for the Genitourinary System Coding Level of Care Code Est Pt Level 4 (38778) Diagnoses BPH w urinary obs/LUTS N40.1; N13.8 Weak urinary stream R39.12 CPT Codes Post Residual Void - PVR CPT Code: 51222-[id number] Void Residual by ultrasound ([id number])
== END 2024-01-04 14:06 | disposition home or self-care (01) ==
PROVIDERS: PCP Internal Medicine; Visit Provider Urology
DX: N40.1 Benign prostatic hyperplasia with lower urinary tract symptoms (principal); N13.8 Other obstructive and reflux uropathy; R39.12 Poor urinary stream
CPT/HCPCS: 99214

== ENCOUNTER → 2024-01-04 13:19 | Outpatient (BNVA) | payer MEDICARE, SELFPAY | PROVIDERS: PCP Internal Medicine; Visit Provider Urology | DX: N40.1 Benign prostatic hyperplasia with lower urinary tract symptoms (principal); N13.8 Other obstructive and reflux uropathy; R39.12 Poor urinary stream | CPT/HCPCS: 51798; 99212 ==

== ENCOUNTER 2024-08-01 13:57 | Outpatient (AMB) | payer MEDICARE, SELFPAY ==
--- NOTE | 2024-08-01 14:02 | A.OFFVIS_ITS ---
Vital Signs 08/01/24 14:03 Height 5 ft 4 in Weight 210 lb 8.663 oz BMI 36.1 BP 106/64 Blood Pressure Location Rt brachial Position Sitting Pulse 62 Pulse Source Pulse Oximeter Pulse Oximetry (%) 98 Oxygen Delivery Method Room Air Intake Visit Reasons: Sleep apnea Allergies No Known Allergies Allergy (Verified 08/01/24 14:52) Medication List - Last Reconciled 08/01/24 by Gab Clements MD aspirin 81 mg PO DAILY atorvastatin 20 mg PO BEDTIME levothyroxine 50 mcg PO DAILY losartan 50 mg PO DAILY multivitamin (Daily Multi-Vitamin tablet) 1 tab PO DAILY terazosin 10 mg PO BEDTIME 90 days Do you need a note to return to daycare/school/sports/work: No HPI HPI Sleep apnea: Details: 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 He has history of obstructive sleep apnea, for about a year after the diagnosis he was relatively compliant. But afterwards he hardly uses the CPAP. He claims that when he puts on the CPAP he actually can not go to sleep. His sleep is much better without putting on the CPAP. He is always sleeping in lateral position. According to his he does not snore much. He sleeps 6-7 hours, without any awakenings. He wakes up fresh and remains very active during the daytime. He travels frequently mainly going to [place] and he loves to eat all kinds of food especially sweets. Now he is back here for a while and he has joined gym and expects to lose some weight. [facility] Medical History Restrictive lung disease TEJAS (obstructive sleep apnea) Obesity (BMI 30-39.9) Hyperlipidemia HTN (hypertension) Obesity Hypothyroid High cholesterol Other obstructive and reflux uropathy Benign prostatic hyperplasia with lower urinary tract symptoms Elevated PSA Surgical History H/O colonoscopy Family History Father No problems noted. 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 Review of Systems Const All systems reviewed & are unremarkable except as noted in HPI and below Reports snoring Eyes Reports no additional complaints ENT Reports no additional complaints Card Denies chest pain, Denies irregular heart rhythm and Denies leg edema Resp Reports as per HPI, Denies cough, Reports snoring and Denies wheezing GI Reports no additional complaints Reports urinary hesitancy Musc Reports no additional complaints Skin/Breast Reports system reviewed and no additional complaints, except as documented Neuro Reports no additional complaints Psych Reports no additional complaints Endo Reports no additional complaints Andrey/Lymph Reports no additional complaints Aller/Immun Denies wheezing Physical Exam Vital Signs: Last Vital Signs Pulse 62 08/01/24 14:03 BP 106/64 08/01/24 14:03 Pulse Ox 98 08/01/24 14:03 Oxygen Delivery Method Room Air 08/01/24 14:03 BMI result Body Mass Index 36.1 Const General: healthy appearing (Except for being overweight), comfortable, no acute distress, alert and awake Orientation/consciousness: patient oriented x3 HEENT Head: Yes normal to inspection General nose exam: No nasal polyps present and No nasal discharge present Face and sinus: Yes sinuses nontender Mouth: oropharynx abnormals (Narrow and crowded, Mallampati class 4) Throat: Yes posterior oropharynx normal Eyes General: appearance normal, both eyes and all related structures Neck Other: Neck is short and obese, neck circumference 17-1/2 inch. Neck: Yes normal visual inspection, Yes no lymphadenopathy, Yes trachea midline and Yes no JVD Thyroid: Thyroid normal Chest Chest palpation & inspection: normal inspection of the chest, normal palpation of entire chest wall and no tenderness Resp Effort & Inspection: normal respiratory effort Auscultation: clear to auscultation bilaterally, no crackles and no wheezes Percussion: percussion normal Cardio Palpation: normal PMI Rate: regular rate Rhythm: regular rhythm Heart sounds: no gallops and no murmurs Peripheral pulses: Peripheral pulses 2+ throughout GI Palpation (GI): Soft to palpation, nontender, No hepatosplenomegaly present, no masses and Other GI palpation findings present (Abdomen is obese and slightly protuberant) Auscultation: normal bowel sounds Back/Spine/Pelvis Thoracic/Lumbar Spine: thoracic and lumbar spine normal to inspection Skin General skin exam: no rashes or lesions noted Neuro General: patient oriented x3 and no focal motor deficits Cranial nerves: Yes CN's II-XII intact bilaterally Extrem General: Yes normal to inspection, Yes no clubbing, cyanosis or edema and Yes no calf tenderness Psych Appearance: grossly normal and well kempt Speech and movement: Normal speech and movement present Results Reviewed Results Reviewed: Compliance report from January 2024 shows that he does not use the CPAP much and when he does use it is only for 1 or 2 hours. His residual AHI is 0.6. Assessment & Plan Assessment & Plan (1) TEJAS (obstructive sleep apnea): Comment: He has moderately severe obstructive sleep apnea. Since his last visit 6 months ago he was using CPAP more regularly. He likes nasal pillows. But again since March 2023 he has not used much, due to his travels overseas. Code(s): G47.33 - Obstructive sleep apnea (adult) (pediatric) Category: Medical Plan: This gentleman is basically noncompliant to use of CPAP. He claims that he sleeps much better without the CPAP. He sleeps 6-7 hours every night without waking up and without much snoring. So after detailed discussion I told him that he does not have to use the CPAP. He should focus more on losing weight. (2) Obesity (BMI 30-39.9): Comment: Remains grossly overweight. Code(s): E66.9 - Obesity, unspecified Category: Medical Plan: Discussed with him about need to lose weight. I told him to cut down the intake of carbohydrates, And start doing regular exercise daily . Does not have to come back. For monitoring the compliance But he is us to call my office make appointment if he starts having any problem in sleeping. (3) Restrictive lung disease: Comment: Moderate degree of restrictive lung disease, related to his obesity. Again he was advised to lose weight and do deep breathing exercises. Code(s): J98.4 - Other disorders of lung Category: Medical Plan: Advised to lose weight. Advised to do deep breathing exercises Coding Level of Care Code Est Pt Level 3 (87262) Diagnoses TEJAS (obstructive sleep apnea) G47.33 Obesity (BMI 30-39.9) E66.9 Restrictive lung disease J98.4
[2024-08-01 14:03] VITALS: BP 106/64; PULSE 62; O2SAT 98; BMI 36.1
== END 2024-08-01 16:07 | disposition home or self-care (01) ==
LOC: HO.HPS 13:57
PROVIDERS: PCP Internal Medicine; Visit Provider Internal Medicine
DX: G47.33 Obstructive sleep apnea (adult) (pediatric) (principal); E66.9 Obesity, unspecified; J98.4 Other disorders of lung
CPT/HCPCS: 99213

== ENCOUNTER → 2024-08-01 13:57 | Outpatient (BNVA) | payer MEDICARE, SELFPAY | PROVIDERS: PCP Internal Medicine; Visit Provider Internal Medicine | DX: G47.33 Obstructive sleep apnea (adult) (pediatric) (principal); J98.4 Other disorders of lung; E66.9 Obesity, unspecified; Z68.36 Body mass index [BMI] 36.0-36.9, adult; Z99.89 Dependence on other enabling machines and devices | CPT/HCPCS: 99212 ==

== ENCOUNTER 2025-01-02 13:30 | Outpatient (AMB) | payer MEDICARE, SELFPAY ==
--- NOTE | 2025-01-02 13:35 | MHC.OFFVIS ---
Intake Visit Reasons: 1y/PVR Intake Note: Patient is Present for 1 yr follow up Urology Med:Terazosin Antibiotic Allergy: None Blood Thinner:Aspirin PVR: 75 mls Sharepoint Developer Required: No Odd Bundle Worker: Odd Bundle Worker Present Accompanied by: Self / Same As Patient Allergies No Known Allergies Allergy (Verified 01/02/25 13:35) HPI Comments Details: Rell is a pleasant male. He is seen for the following urologic conditions - lower urinary tract symptoms - associated elevated PSA Yearly review Stable in 10 mg terazosin Current symptom nocturia x1, effective stream, effective emptying PVR 75 cc. Encouraged to work on weight loss. [place] gentleman target BMI under 27. Twelve month follow-up PSA Lower urinary tract symptoms/elevated PSA Discussed current results - progressive hesitancy and nocturia with incomplete emptying despite tamsulosin Baseline symptoms mild nocturia with weakness of stream Current therapy trial terazosin 10 mg Prior therapy therapy tamsulosin Laboratories - PSA has been as high as 4.1 11/28 1.3, 06/01 1.15, 11/29 1.8, 10/30 1.9, 12/01 1.8, 01/02 1.1 Therapeutic plan continue current medications [facility] Medical History Restrictive lung disease TEJAS (obstructive sleep apnea) Obesity (BMI 30-39.9) Hyperlipidemia HTN (hypertension) Obesity Hypothyroid High cholesterol Other obstructive and reflux uropathy Benign prostatic hyperplasia with lower urinary tract symptoms Elevated PSA Surgical History H/O colonoscopy Family History Father No problems noted. 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 Review of Systems Const Denies chills and Denies fever(s) Card Reports no additional complaints and Denies syncope Resp Denies cough GI Denies abdominal pain and Denies heartburn Reports as per HPI and Denies change in libido Neuro Denies syncope Psych Denies change in libido Endo Denies change in libido Physical Exam Const General: cooperative, healthy appearing, comfortable and no acute distress Orientation/consciousness: patient oriented x3 HEENT Face and sinus: Yes normal facial exam Mouth: moist mucous membranes Neck Neck: Yes normal visual inspection, Yes full ROM and Yes trachea midline Chest Chest palpation & inspection: normal inspection of the chest Resp Effort & Inspection: normal respiratory effort, able to speak in complete sentences and no respiratory distress GI Inspection: Yes normal to inspection Back/Spine/Pelvis Cervical Spine: normal cervical lordosis Thoracic/Lumbar Spine: thoracic and lumbar spine normal to inspection Skin General skin exam: no rashes or lesions noted Neuro General: patient oriented x3, gait normal, tone normal and moves all extremities Extrem General: Yes normal to inspection and Yes capillary refill normal Assessment & Plan Assessment & Plan (1) Elevated PSA: Code(s): R97.20 - Elevated prostate specific antigen [PSA] Category: Medical Plan Twelve month follow-up Orders: Orders Prostate Specific Antigen 12 Months R97.20 - Elevated prostate specific antigen [PSA] Medications: Refilled terazosin 10 mg PO BEDTIME 90 caps 3RF 90 days N13.8 - Other obstructive and reflux uropathy, N40.1 - Benign prostatic hyperplasia with lower urinary tract symptoms Patient Instructions: This note is constructed using voice recognition software. While every effort has been made to ensure accuracy survey instrument operator errors may have been included. Imaging studies, laboratory and physical exam results were discussed and reviewed in detail. No major barriers to patient understanding were identified. An opportunity to ask questions regarding the treatment plan was provided. All questions were answered. The patient expressed understanding and agreement with the above treatment plan. The patient is aware they should contact our office by phone for worsening of their current condition or the appearance of new urologic symptoms. Compliance is encouraged with any medications and followup testing that is ordered. It is a privilege to participate in the urologic care of your patient. If you have any questions or concerns regarding treatment for the above conditions, or other urologic issues, please do not hesitate to contact me. The office telephone contact is [phone]. Sincerely, Dr Tyson Jackson MD, [facility] - Urology Compassionate Specialist Care for the Genitourinary System Coding Level of Care Code Est Pt Level 4 (34373) Diagnoses Elevated PSA R97.20
== END 2025-01-02 14:32 | disposition home or self-care (01) ==
LOC: HO.HUSH 13:31
PROVIDERS: PCP Internal Medicine; Visit Provider Urology
DX: Z13.9 Encounter for screening, unspecified (principal); R97.20 Elevated prostate specific antigen [PSA]
CPT/HCPCS: 99214

== ENCOUNTER → 2025-01-02 13:30 | Outpatient (BNVA) | payer MEDICARE, SELFPAY | PROVIDERS: PCP Internal Medicine; Visit Provider Urology | DX: N40.1 Benign prostatic hyperplasia with lower urinary tract symptoms (principal); N13.8 Other obstructive and reflux uropathy; R97.20 Elevated prostate specific antigen [PSA]; Z13.9 Encounter for screening, unspecified | CPT/HCPCS: 51798; 81003; 99212 ==